=== PATIENT | male | born 1990 | race Caucasian/White ===

== ENCOUNTER 2016-12-11 20:56 | Emergency (ER) | payer OTHER ==
[2016-12-11 21:08] VITALS: BP 137/85
--- NOTE | 2016-12-11 21:14 | EDM.PDOC ---
ED HPI GENERAL MEDICAL PROBLEM - General Chief Complaint: Head Injury Stated Complaint: POSS CONCUSSION Time Seen by Provider: 12/11/16 21:14 Source of Information: Reports: Patient History Limitations: Reports: No Limitations - History of Present Illness INITIAL COMMENTS - FREE TEXT/NARRATIVE: 25-year-old male reports the ED with a work-related injury. Patient states that he was struck in the right temporal aspect of his scalp or head this morning( 0900) by a hydraulic hose it was under good deal of pressure. He never got any warning that he was going to be head. Those came off its bed and struck him in the Rt temporal scalp. It dazed but it did not knock him down. Subsequently developed a headache with transient nausea off and on throughout the remainder of the day. Current headache is 4 out of 10 after taking 2 Tylenol. He has not vomited. He's been able to eat and do his work fairly normally today. He did not do much heavy lifting pushing or pulling. He is concerned that he has suffered a concussion. He does not use any blood thinners. Onset: Today Onset Date: 12/11/16 Onset Time: 09:00 Duration: Hour(s): Location: Reports: Head (right temporal scalp.) Quality: Reports: Ache, Throbbing Severity: Moderate Improves with: Reports: None Worsens with: Reports: Other (touching the area.) Context: Reports: Trauma (see history of present illness) Associated Symptoms: Reports: Headaches. 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 [No Known Home Meds] 12/11/16 [History] Past Medical History - Past Health History Medical/Surgical History: Denies Medical/Surgical History Social & Family History - Family History Family Medical History: Noncontributory - Tobacco Use Smoking Status *Q: Never Smoker Second Hand Smoke Exposure: No - Caffeine Use Caffeine Use: Reports: Coffee - Recreational Drug Use Recreational Drug Use: No - Living Situation & Occupation Living situation: Reports: Single Occupation: Employed ED ROS GENERAL - Review of Systems Review Of Systems: See Below Constitutional: Reports: Decreased Appetite. Denies: Fever, Chills, Malaise, Weakness, Fatigue, Night Sweats, Diaphoresis, Weight Loss, Weight Gain HEENT: Reports: Hearing Loss (transient in his right ear after he was struck. He feels his hearing has returned to normal.). Denies: Eye Pain Respiratory: Reports: No Symptoms Cardiovascular: Reports: No Symptoms Endocrine: Reports: No Symptoms GI/Abdominal: Reports: Nausea. Denies: No Symptoms, Vomiting : Reports: No Symptoms Musculoskeletal: Reports: No Symptoms Skin: Reports: Other (had a small puncture wound at the site that he was struck on the right temporal scalp. It has been bleeding intermittently throughout the day if he touches it.) Neurological: Reports: Dizziness, Headache. Denies: Confusion, Numbness, Paresthesia, Pre-Existing Deficit, Seizure, Syncope, Tingling, Tremors, Trouble Speaking, Difficulty Walking, Weakness, Change in Speech, Gait Disturbance, Other Psychiatric: Reports: Anxiety Hematologic/Lymphatic: Reports: No Symptoms ED EXAM, HEAD INJURY - Physical Exam Exam: See Below Exam Limited By: No Limitations General Appearance: Alert, WD/WN, No Apparent Distress Head: Scalp Swelling (right temporal scalp), Scalp Abrasions (right temporal scalp approximately 2.5 cm in diameter.deep abrasion right temporal scalp injuring approximately 4 mm in length.), Scalp Tenderness. No: Active Bleeding , Orta's Sign, Flap, Facial Abrasions, Facial Ecchymosis, Facial Lacerations, Facial Swelling, Sinus Tenderness, Facial Tenderness Nexus Criteria: No: Posterior, Midline Cervical Tenderness, Evidence of Intoxication, Altered Level of Consciousness, Focal Neurological Deficit, Painful Distraction Injuries Eyes: Bilateral Eye: Normal Inspection Ears: Normal External Exam, Normal Canal, Hearing Grossly Normal, Normal TMs Nose: Normal Inspection, Normal Mucousa, No Blood Throat/Mouth: Normal Inspection, Normal Lips, Normal Teeth, Normal Gums, Normal Oropharynx, Normal Voice Neck: Non-Tender, Full Range of Motion, Normal Alignment, Normal Inspection Respiratory: No Respiratory Distress, Lungs Clear, Normal Breath Sounds, No Accessory Muscle Use Cardiovascular: Normal Peripheral Pulses, Regular Rate, Rhythm, No Edema, No Murmur 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 Suffered a closed head injury in the workplace this morning about 0900 hrs. when he was struck in the right temporal scalp by a hydraulic hose that it came off the hose bib. Significant force. It did not knock him out or not came down. States he developed immediate headache and had bleeding from a puncture wound into the skin that was struck. Says police had nausea on off and on throughout the day. Has not vomited he has a headache currently at he rates as 4- 5 out of 10 .he does have a small puncture wound in this area. His tetanus toxoid is up- to-date. Plan CT of the head to be done due to the site of injury i.e. temporal bone with middle meningeal artery in place. Neurologically is intact and it's likely CT will be normal. - Re-Assessments/Exams Free Text/Narrative Re-Assessment/Exam: 12/11/16 21: 45:CT of the head is within normal limits. There is no H cranial hemorrhage or skull fracture. Patient reassured in this regard. By history I do not suspect that he suffered a significant concussion. patient was reassured. He will continue Tylenol for headache if needed. Note given to excuse him from the workplace tomorrow. His wound is to be cleansed daily with soap and water and then topical bacitracin to be applied. Departure - Departure Time of Disposition: 21:59 Disposition: Home, Self-Care 01 Condition: Fair Clinical Impression: Closed head injury Qualifiers: Encounter type: initial encounter Qualified Code(s): S09.90XA - Unspecified injury of head, initial encounter - Discharge Information Instructions: Head Injury, Adult Referrals: PCP,None [Primary Care Provider] - Forms: ED Department Discharge, ED Return to Work/School Form Additional Instructions: evaluation the emergency room tonight due to work-related injury that occurred at 0900 hrs. this morning. Struck in the right temporal aspect of the skull by a hydraulic hose that was under good deal of pressure. Superficial laceration puncture wound to the right temporal scalp evident. Associated intermittent nausea but no vomiting. Associated headache that is actually easing up with Tylenol. CT of the head was done due to the area of bone affected which is the thinnest of our skull. It is within normal limits showing no sign of bleeding or skull fracture as to whether or not you suffered a concussion this is difficult to ascertain. It appears that you have suffered a closed head injury without evidence of significant concussion. Usually concussion will cause visual acuity problems and off balance problems and nausea vomiting. Also repeated questioning of what happened to you at the time of injury sometimes 5- 15 minutes. You did not seem to exhibit these signs or symptoms. Therefore Tylenol is okay as well as Motrin 600 mg every 6 hours or Tylenol 650 mg every 4 hours for headache relief. Cleanse the wound daily with soap and water. Showering is okay and then apply topical antibiotic such as bacitracin or Polysporin to the wound. - My Orders Last 24 Hours: My Active Orders 12/11/16 21:28 Head wo Cont [CT] Stat - Assessment/Plan Last 24 Hours: My Active Orders 12/11/16 21:28 Head wo Cont [CT] Stat
--- NOTE | 2016-12-14 18:07 | CT ---
Head CT Technique: Multiple axial sections through the brain were obtained. Intravenous contrast was not utilized. Comparison: No previous intracranial imaging. Findings: Ventricles along with basal cisterns and sulci over the convexities are within normal limits for the patient's age. No abnormal parenchymal densities are seen. No evidence of intracranial hemorrhage. No midline shift or mass effect is seen. Visualized sinuses are clear. No acute calvarial abnormality is identified. Impression: 1. Nothing acute is identified on noncontrast head CT study. Diagnostic code #1 I agree with preliminary report issued by [facility] ([facility] report finalized on 12/11/16, 10:56 PM Central Time)
== END 2016-12-11 22:05 | disposition home or self-care (01) ==
LOC: JD.ED 20:56
DX: S09.90XA Unspecified injury of head, initial encounter (principal); S00.01XA Abrasion of scalp, initial encounter; Z88.0 Allergy status to penicillin; W22.8XXA Striking against or struck by other objects, initial encounter
CPT/HCPCS: 70450; 70450-26; 99284; 99284-25

== ENCOUNTER 2019-11-27 19:12 | Emergency (ER) | payer BC, OTHER ==
[2019-11-27 19:42] VITALS: BP 147/90; PULSE 75
[2019-11-27] MEDS ORDERED: Lidocaine 1% 10 ML MDV INJECT ONE (19:49)
[2019-11-27] MEDS ORDERED: Amoxicillin/Clavulanate K 875-125 MG Tab PO ONE (19:49)
--- NOTE | 2019-11-27 20:07 | EDM.PDOC ---
ED HPI GENERAL MEDICAL PROBLEM - General Chief Complaint: Bite:Animal, Insect Stated Complaint: LT HAND MIDDLE FINGER LAC Time Seen by Provider: 11/27/19 19:48 Source of Information: Reports: Patient, RN Notes Reviewed History Limitations: Reports: No Limitations - History of Present Illness INITIAL COMMENTS - FREE TEXT/NARRATIVE: Patient is a 28-year-old male who presents to the ED for the evaluation of a left middle finger laceration. Patient notes that he was breaking up a dog fight of his own 2 dogs, and he ended up getting bit on the left hand. This resulted in a U shaped type laceration to the tip of his left anterior third digit. He does have multiple other puncture wounds on the other fingers, but these are not actively bleeding, and will not require repair. He notes that he is up-to-date on his immunizations, and the dogs are up-to-date on their immunizations. Other than the lacerations, he has been feeling well, no fevers or chills, cough/shortness of breath, nausea/vomiting/diarrhea. Not complaining of any tingling near the injuries, or on any fingers. - Related Data Allergies Allergy/AdvReac Type Severity Reaction Status Date / Time Penicillins Allergy Rash Verified 11/27/19 19:42 Home Meds: Home Meds Amoxicillin/Clavulanate K [Augmentin 875-125 MG] 1 tab PO BID #14 tablet 11/27/19 [Rx] Citalopram Hydrobromide [Celexa] 40 mg PO DAILY 11/27/19 [History] Past Medical History - Past Health History Medical/Surgical History: Denies Medical/Surgical History Cardiovascular History: Reports: None Respiratory History: Reports: None Gastrointestinal History: Reports: None Genitourinary History: Reports: None Musculoskeletal History: Reports: None Neurological History: Reports: None Psychiatric History: Reports: Anxiety Endocrine/Metabolic History: Reports: None Hematologic History: Reports: None Immunologic History: Reports: None Oncologic (Cancer) History: Reports: None Dermatologic History: Reports: None - Infectious Disease History Infectious Disease History: Reports: None - Past Surgical History HEENT Surgical History: Reports: Oral Surgery Social & Family History - Family History Family Medical History: Noncontributory - Tobacco Use Smoking Status *Q: Never Smoker - Caffeine Use Caffeine Use: Reports: Coffee - Recreational Drug Use Recreational Drug Use: No - Living Situation & Occupation Living situation: Reports: Single Occupation: Employed ED ROS GENERAL - Review of Systems Review Of Systems: Comprehensive ROS is negative, except as noted in HPI. ED EXAM, ANIMAL BITE - Physical Exam Exam: See Below Exam Limited By: No Limitations General Appearance: Alert, WD/WN, No Apparent Distress Respiratory/Chest: No Respiratory Distress, Lungs Clear, Normal Breath Sounds, No Accessory Muscle Use, Chest Non-Tender Cardiovascular: Normal Peripheral Pulses, Regular Rate, Rhythm, No Murmur Peripheral Pulses: 2+: Radial (L), Radial (R) Extremities: Normal Range of Motion, Normal Capillary Refill Neurological: Alert, Oriented, Normal Cognition, No Motor/Sensory Deficits Psychiatric: Normal Affect, Normal Mood Skin Exam: Normal Color, Warm/Dry, Other (Roughly 1 cm flap type laceration to the anterior distal third digit.) ED ANIMAL BITE PROCEDURES - Laceration/Wound Repair Left Anterior Distal Digit - 3rd (Middle) Lac/Wound Length In cm: 1 Appearance: Linear (curvilinear), Clean Distal NVT: Neuro & Vascular Intact, No Tendon Injury Anesthetic Type: Local Local Anesthetic Volume: 2cc Skin Prep: Providone-Iodine (Betadine), Saline Exploration/Debridement/Repair: Wound Explored, In a Bloodless Field, Explored to Base, No Foreign Material Found Closed With: Sutures Suture Size: 4-0 # of Sutures: 6 Suture Type: Prolene, Interrupted, Simple Sterile Dressing Applied: Nurse Tetanus Status Addressed: Yes Complications: No Course - Vital Signs Last Recorded V/S: Last Vital Signs Temp 97.2 F 11/27/19 19:39 Pulse 75 11/27/19 19:39 Resp 16 11/27/19 19:39 BP 147/90 H 11/27/19 19:39 Pulse Ox 100 11/27/19 19:39 - Orders/Labs/Meds Meds: Medications Discontinued Medications Generic Name Dose Route Start Last Admin Trade Name Freq PRN Reason Stop Dose Admin Amoxicillin/Clavulanate Potassium 1 tab 11/27/19 19:49 Augmentin 875 Mg/125 Mg PO 11/27/19 19:50 ONETIME ONE Lidocaine HCl 10 ml 11/27/19 19:49 Xylocaine 1% INJECT 11/27/19 19:50 ONETIME ONE Departure - Departure Time of Disposition: 20:07 Disposition: Home, Self-Care 01 Condition: Good Clinical Impression: Dog bite of extremity - Discharge Information *PRESCRIPTION DRUG MONITORING PROGRAM REVIEWED*: No *COPY OF PRESCRIPTION DRUG MONITORING REPORT IN PATIENT LEOLA: No Instructions: Animal Bite, Adult, [id number] Referrals: PCP,None [Primary Care Provider] - Additional Instructions: You have been evaluated in the ED for your laceration. Sutures will need to stay in for 10-14 days (12/06-12/10) You may return to the ED or any clinic for removal. Please keep this area clean and dry, you may cleanse with regular soap and water. No vigorous scrubbing. Please try to avoid submerging the affected area in water for prolonged periods of time until the sutures are removed. Watch out for signs of infection like increased redness, swelling, pain at the laceration site, or if you should develop any fevers or chills. You were given a prescription for Augmentin, which contains amoxicillin. You did note that you had a penicillin allergy, if in 48 hours after taking this medication, you start noticing a rash, please stop using the amoxicillin, and seek management for a different antibiotic. It is likely that your penicillin allergy was not a true allergy, and that you should likely be able to take the Augmentin just fine. This antibiotic sometimes can create loose stools, if you should find yourself having some diarrhea, please go to the pharmacy and get a good probiotic ask the pharmacist to recommend one for you. Please return to ED if your symptoms change or worsen. Sepsis Event Note (ED) - Evaluation Sepsis Screening Result: No Definite Risk - Focused Exam Vital Signs: Vital Signs Temp Pulse Resp BP Pulse Ox 11/27/19 19:39 97.2 F 75 16 147/90 H 100
== END 2019-11-27 21:55 | disposition home or self-care (01) ==
LOC: JD.ED 19:12
DX: S61.253A Open bite of left middle finger without damage to nail, initial encounter (principal); F41.9 Anxiety disorder, unspecified; Z79.899 Other long term (current) drug therapy; Z88.0 Allergy status to penicillin; W54.0XXA Bitten by dog, initial encounter
CPT/HCPCS: 12001; 99283; A9270; J2001